=== PATIENT | female | born 1970 | race African-American/Black ===

== ENCOUNTER 2024-12-25 08:00 | Outpatient (CLI) | payer OTHER | END 2024-12-25 08:01 | LOC: PET 08:00 | PROVIDERS: ATTEND Internal Medicine | DX: C16.2 Malignant neoplasm of body of stomach (principal); D50.8 Other iron deficiency anemias; Z79.899 Other long term (current) drug therapy; K76.9 Liver disease, unspecified | CPT/HCPCS: 78815; A9552 ==

== ENCOUNTER 2025-03-22 11:00 | Outpatient (CLI) | payer OTHER | END 2025-03-22 11:01 | disposition home or self-care (01) | LOC: PET 11:00 | PROVIDERS: ATTEND Internal Medicine | DX: C16.2 Malignant neoplasm of body of stomach (principal); D50.8 Other iron deficiency anemias; K76.89 Other specified diseases of liver; R59.0 Localized enlarged lymph nodes; J39.2 Other diseases of pharynx; Z79.899 Other long term (current) drug therapy | CPT/HCPCS: 78815; A9552 ==